=== PATIENT | male | born 1985 | race Asian ===

== ENCOUNTER 2019-08-03 22:16 | Emergency (ER) | payer OTHER ==
[2019-08-03 22:22] VITALS: BP 128/82
[2019-08-04] MEDS ORDERED: Fluorescein Sodium TOPICAL* 1 MG TEST STRIP OPHTHALMIC ONE (00:45)
--- NOTE | 2019-08-04 00:46 | ED ---
Throat Pain/Nasal Congestion - HPI Summary HPI Summary: Patient complains of waking up this morning with vision change in left eye. Patient states straight lines appear to the left eye. Denies known trauma, contact lenses, prior history of similar symptoms. Denies loss of vision, headache, fever, other unilateral deficit, eye pain, tearing, discharge from eye. Medical history is none. - History of Current Complaint Chief Complaint: EDEyeProblem Time Seen by Provider: 08/04/19 00:39 Hx Obtained From: Patient Onset/Duration: Sudden Onset, Lasting Hours Severity: Mild Associated Signs And Symptoms: Positive: Negative Cough: None - Allergies/Home Medications Allergies/Adverse Reactions: Allergies Allergy/AdvReac Type Severity Reaction Status Date / Time No Known Allergies Allergy Verified 08/03/19 22:21 PMH/Surg Hx/FS Hx/Imm Hx Endocrine/Hematology History: Denies: Hx Anticoagulant Therapy Cardiovascular History: Denies: Hx Pacemaker/ICD History: Denies: Hx Dialysis Sensory History: Denies: Hx Eye Prosthesis Opthamlomology History: Denies: Hx Legally Blind EENT History: Denies: Hx Deafness Neurological History: Denies: Hx Dementia Infectious Disease History: No Infectious Disease History: Denies: Traveled Outside the [place] in Last 30 Days - Family History Known Family History: Positive: Non-Contributory - Social History Alcohol Use: Occasionally Hx Substance Use: No Hx Tobacco Use: No Review of Systems Constitutional: Negative Eyes: Other ENT: Negative Cardiovascular: Negative Respiratory: Negative Gastrointestinal: Negative Genitourinary: Negative Musculoskeletal: Negative Skin: Negative Neurological/Mental Status: Negative Psychological: Normal All Other Systems Reviewed And Are Negative: Yes Physical Exam - Summary Physical Exam Summary: Negative conjunctival injection. No abrasion or ulceration or foreign body noted on ultraviolet exam. Vision exam normal. Neuro exam normal. Triage Information Reviewed: Yes Vital Signs On Initial Exam: Initial Vitals Temp Pulse Resp BP Pulse Ox 97.4 F 70 15 128/82 96 08/03/19 22:17 08/03/19 22:17 08/03/19 22:17 08/03/19 22:17 08/03/19 22:17 Vital Signs Reviewed: Yes Appearance: Positive: Well-Appearing Skin: Positive: Warm Head/Face: Positive: Normal Head/Face Inspection Eyes: Positive: EOMI, VICKEY, Conjunctiva Clear. Negative: Conjunctiva Inflammed , Discharge ENT: Positive: Normal ENT inspection Neck: Positive: Supple Respiratory/Lung Sounds: Positive: Clear to Auscultation Cardiovascular: Positive: Normal Abdomen Description: Positive: Nontender Musculoskeletal: Positive: Normal Neurological: Positive: Normal Psychiatric: Positive: Normal AVPU Assessment: Alert - Efra Coma Scale Best Eye Response: 4 - Spontaneous Best Motor Response: 6 - Obeys Commands Best Verbal Response: 5 - Oriented Coma Scale Total: 15 Procedures - Sedation Patient Received Moderate/Deep Sedation with Procedure: No Diagnostics - Vital Signs Vital Signs Temp Pulse Resp BP Pulse Ox 08/03/19 22:17 97.4 F 70 15 128/82 96 - Laboratory Lab Statement: Any lab studies that have been ordered have been reviewed, and results considered in the medical decision making process. EENT Course/Dx - Course Course Of Treatment: Patient complains of waking up this morning with vision change in left eye. Patient states straight lines appear to the left eye. Denies known trauma, contact lenses, prior history of similar symptoms. Denies loss of vision, headache, fever, other unilateral deficit, eye pain, tearing, discharge from eye. Medical history is none. Vital signs within normal limits. Ultraviolet light exam of eye unremarkable. Follow-up with ophthalmology. - Diagnoses Provider Diagnoses: Vision changes Discharge ED - Sign-Out/Discharge Documenting (check all that apply): Patient Departure - Discharge Plan Condition: Stable Disposition: HOME Patient Education Materials: Blurred Vision (ED) Referrals: No Primary Care Phys,NOPCP [Primary Care Provider] - Mckinley Salas MD [Medical Doctor] - Additional Instructions: On monday morning call the office of Ophthalmology Dr Salas for further evaluation. In the meantime return to the ED for any new or worsening symptoms. - Billing Disposition and Condition Condition: STABLE Disposition: Home
[2019-08-04] MEDS ORDERED: Tetracaine 0.5% OPTH.SOL 4 ML* 1 DROP BTL SCH (01:00)
== END 2019-08-04 01:40 | disposition home or self-care (01) ==
LOC: ED 22:16
DX: H53.9 Unspecified visual disturbance (principal)
CPT/HCPCS: 99282; A9270-GY